=== PATIENT | female | born 1985 | race Caucasian/White ===

== ENCOUNTER 2022-03-12 02:36 | Emergency (ER) | payer MEDICAID ==
[~2022-03-12] VITALS: Ht 167.6 cm; Wt 86.0 kg
[2022-03-12] MEDS ORDERED: LEXAPRO10 MG PO (02:56)
[2022-03-12] MEDS ORDERED: CEPHALEXIN500 M1 PO (04:58)
[2022-03-12] MEDS ORDERED: PYRIDIUM200 MG PO (04:58)
== END 2022-03-12 05:10 | disposition home or self-care (01) ==
LOC: ED 02:36
DX: N12 Tubulo-interstitial nephritis, not specified as acute or chronic (principal); Z79.899 Other long term (current) drug therapy
CPT/HCPCS: 74176; 81001; 87088; 99284-25; A9270